=== PATIENT | female | born 1975 | race African-American/Black ===

== ENCOUNTER 2021-06-01 10:40 | Outpatient (REF) | payer OTHER, SELFPAY | END 2021-06-01 10:41 | disposition home or self-care (01) | LOC: HO.LAB 10:40 | PROVIDERS: Visit Provider Internal Medicine | DX: Z20.822 Contact with and (suspected) exposure to COVID-19 (principal) | CPT/HCPCS: C9803; U0003; U0005 ==

== ENCOUNTER 2021-10-12 08:23 | Outpatient (REF) | payer OTHER, SELFPAY ==
[2021-10-12 08:59] LABS: COVID-19 Test Positive (Negative); IDNOW Serial# 16C4AD1C
== END 2021-10-12 08:24 | disposition home or self-care (01) ==
LOC: HO.LAB 08:23
PROVIDERS: Visit Provider Internal Medicine
DX: Z20.822 Contact with and (suspected) exposure to COVID-19 (principal)
CPT/HCPCS: 36415; 87635; C9803

== ENCOUNTER 2021-10-19 09:47 | Outpatient (REF) | payer OTHER, SELFPAY ==
[2021-10-19 11:40] LABS: COVID-19 Test Positive (Negative)
== END 2021-10-19 09:48 | disposition home or self-care (01) ==
LOC: HO.LAB 09:47
PROVIDERS: Visit Provider Internal Medicine
DX: Z20.822 Contact with and (suspected) exposure to COVID-19 (principal)
CPT/HCPCS: 36415; 87635; C9803

== ENCOUNTER 2021-11-04 08:12 | Outpatient (REF) | payer OTHER, SELFPAY ==
[2021-11-04 08:44] LABS: COVID-19 Test Negative (Negative)
== END 2021-11-04 08:13 | disposition home or self-care (01) ==
LOC: HO.LAB 08:12
PROVIDERS: Visit Provider Internal Medicine
DX: Z20.822 Contact with and (suspected) exposure to COVID-19 (principal)
CPT/HCPCS: 87635; C9803

== ENCOUNTER 2021-11-17 15:30 | Outpatient (REF) | payer OTHER, SELFPAY ==
--- NOTE | ~2021-11-17 | US_ITS ---
EXAMINATION: US VENOUS ULTRASOUND WITH DOPPLER LOWER EXTREMITY, LEFT CLINICAL INFORMATION: Left leg pain COMPARISON: None TECHNIQUE: Ultrasound of the deep veins is performed from the hip to the calf with compression sonography and color and pulse Doppler assessment. Spectral analysis with color-flow imaging is performed. FINDINGS: There is normal venous compression and respiratory variation and augmented flow. The visualized common femoral vein, superficial femoral vein, profunda femoral vein, popliteal vein, and the trifurcation region shows no evidence of deep venous thrombosis. There is slow flow seen in the left popliteal vein. There are small left inguinal lymph nodes. There is no significant popliteal fossa cyst. US/US venous duplex LE LT IMPRESSION: No DVT demonstrated in the left lower extremity.
--- NOTE | ~2021-11-17 | XR_ITS ---
EXAMINATION: XR KNEE, LEFT CLINICAL INFORMATION: Pain. COMPARISON: 06/02/2017 TECHNIQUE: Four views of the left knee. FINDINGS: Once again, there is mild incongruity involving the articular patella at the articulation with the femur and this would be consistent with old trauma/osteochondral injury. Appearance is similar to previous. There is some mild medial joint space loss similar to previous. There is sclerotic change involving the medial tibial metaphysis and this is also similar to previous. This could represent a growth resumption line. An element of stress injury cannot be excluded. The patella appears fairly well seated on the sunrise image. XR/XR knee LT 4V IMPRESSION: Exam is felt to be similar to previous. Some areas are described above which would indicate old bony injury. Of note, sclerosis in the proximal tibia and medial compartment which appears similar to previous. An element of stress injury cannot be excluded. If further evaluation is warranted, consider MRI for full evaluation.
== END 2021-11-17 15:31 | disposition home or self-care (01) ==
LOC: HO.US 15:30
PROVIDERS: PCP Internal Medicine; Visit Provider Internal Medicine
DX: M79.605 Pain in left leg (principal)
CPT/HCPCS: 73564; 93971

== ENCOUNTER 2022-05-06 13:32 | Outpatient (REF) | payer OTHER, SELFPAY ==
--- NOTE | ~2022-05-06 | XR_ITS ---
EXAMINATION: XR FOOT, RIGHT XR FOOT, LEFT CLINICAL INFORMATION: Bilateral pain, feet COMPARISON: Radiographs right foot 11/16/2019. TECHNIQUE: Each foot is imaged in 3 views. There are total of 6 views. FINDINGS: Right: No fracture, dislocation, destructive process. Normal bony mineralization. No focal joint narrowing or erosive change. Retrocalcaneal recess preserved. There are moderate posterior and plantar calcaneal spurs. Tiny loose body suspected anterior right ankle capsular recess on prior study 2020 not visualized on current exam. There is a tiny distal anterior tibial spur again seen. No visible ankle capsular effusion. Left: Normal bony mineralization. No fracture, dislocation, or arthropathy. No joint narrowing or erosive change. Retrocalcaneal recess preserved. There is bulky plantar calcaneal spur. XR/XR foot LT 2V IMPRESSION: -No fracture, dislocation, destructive process, or arthropathy. -Left: bulky plantar calcaneal spur. -Right: moderate posterior and plantar calcaneal spurs.
--- NOTE | ~2022-05-06 | XR_ITS ---
EXAMINATION: XR FOOT, RIGHT XR FOOT, LEFT CLINICAL INFORMATION: Bilateral pain, feet COMPARISON: Radiographs right foot 11/16/2019. TECHNIQUE: Each foot is imaged in 3 views. There are total of 6 views. FINDINGS: Right: No fracture, dislocation, destructive process. Normal bony mineralization. No focal joint narrowing or erosive change. Retrocalcaneal recess preserved. There are moderate posterior and plantar calcaneal spurs. Tiny loose body suspected anterior right ankle capsular recess on prior study 2020 not visualized on current exam. There is a tiny distal anterior tibial spur again seen. No visible ankle capsular effusion. Left: Normal bony mineralization. No fracture, dislocation, or arthropathy. No joint narrowing or erosive change. Retrocalcaneal recess preserved. There is bulky plantar calcaneal spur. XR/XR foot RT 2V IMPRESSION: -No fracture, dislocation, destructive process, or arthropathy. -Left: bulky plantar calcaneal spur. -Right: moderate posterior and plantar calcaneal spurs.
[2022-05-06 13:46] LABS: MANUAL DIFF FLAG NO
--- NOTE | 2022-05-06 13:46 | ECG_ITS ---
Test Reason : r07.9 cp Blood Pressure : / mmHG Vent. Rate : 065 BPM Atrial Rate : 065 BPM P-R Int : 188 ms QRS Dur : 082 ms QT Int : 404 ms P-R-T Axes : 074 067 048 degrees QTc Int : 420 ms Normal sinus rhythm with sinus arrhythmia Normal ECG When compared with ECG of 08-AUG-2013 11:04, No significant change was found Referred By: Flower Castro Electronically Signed By:ALEJANDRA GARCIA MD
[2022-05-06 14:41] LABS: Basophils Percent Auto 0.4 % (0-2); Eosinophils Absolute Auto 0.1 X10*3/uL (0.0-0.4); Eosinophils Percent Auto 1.8 % (0-4); Hematocrit 37.2 % (37.0-47.0); Hemoglobin 12.4 g/dl (12.0-16.0); Imm Gran Abs Auto 0.03 X10*3/uL (0.00-0.03); Imm Gran Pct Auto 0.4 % (0.0-0.4); Lymphocytes Absolute Auto 2.5 X10*3/uL (1.2-4.9); Lymphocytes Percent Auto 35.1 % (20-40); Mean Corpuscular HGB Conc 33.3 g/dl (31.0-35.0); Mean Corpuscular Hemoglobin 27.4 pg (27.0-33.0); Mean Corpuscular Volume 82.1 fL (80.0-98.0); Mean Platelet Volume 9.9 fL (9.4-12.3); Monocytes Percent Auto 13.6 % (2-11); Neutrophils Absolute Auto 3.5 x10*3/uL (2.0-8.3); Neutrophils Percent Auto 48.7 % (45-73); Platelet Count 342 X10*3/uL (160-400); Red Blood Count 4.53 X10*6/uL (4.20-5.50); Red Cell Distribution Width 14.2 % (11.0-16.0); White Blood Count 7.2 X10*3/uL (4.8-10.8)
[2022-05-06 15:14] LABS: Alanine Aminotransferase 25 U/L (0-31); Albumin Level 4.5 g/dL (3.5-5.0); Alkaline Phosphatase 81 U/L (39-117); Anion Gap 12 (12-20); Aspartate Amino Transferase 21 U/L (5-31); Bilirubin Total 0.9 mg/dL (0.0-1.0); Blood Urea Nitrogen 9 mg/dL (9-16); Calcium 9.1 mg/dL (8.4-10.2); Carbon Dioxide 23 mmol/L (22-29); Chloride 107 mmol/L (96-108); Cholesterol 183 mg/dL; Estimated Glomerular Filt Rate > 60; Glucose Fasting 85 mg/dL (60-99); HDL Cholesterol 44 mg/dL; LDL Cholesterol Calculated 121 mg/dl; Potassium 4.1 mmol/L (3.3-5.1); Sodium 138 mmol/L (135-145); Total Protein 7.9 g/dL (6.5-8.0); Triglycerides 92 mg/dL
[2022-05-06 15:34] LABS: Thyroid Stimulating Hormone 1.44 uIU/mL (0.32-4.0)
== END 2022-05-06 13:33 | disposition home or self-care (01) ==
LOC: HO.XRAY 13:32
PROVIDERS: PCP Internal Medicine; Visit Provider Internal Medicine
DX: Z00.00 Encounter for general adult medical examination without abnormal findings (principal); R07.9 Chest pain, unspecified; M79.671 Pain in right foot; M79.672 Pain in left foot
CPT/HCPCS: 36415; 73620; 80053; 80061; 84443; 85025; 93005

== ENCOUNTER 2022-05-24 12:45 | Outpatient (REF) | payer OTHER, SELFPAY ==
--- NOTE | ~2022-05-24 | MM_ITS ---
EXAMINATION: MM SCREENING DIGITAL BREAST TOMOSYNTHESIS, BILATERAL CLINICAL INFORMATION: Screening. Asymptomatic. Family history breast cancer, mother. The lifetime risk of breast cancer based on the Tyrer-Cuzick Model is 22%. COMPARISON: Mammography: 07/07/2016 (baseline) TECHNIQUE: Digital breast tomosynthesis is performed in both the craniocaudal and mediolateral oblique views along with computer-aided detection (CAD). Synthesized 2D images are generated from the tomosynthesis. FINDINGS: The breasts are heterogeneously dense, which may obscure small masses (ACR BI-RADS breast composition Category c). Breast tissue composition borders on average fibroglandular. There is no interval mass or architectural abnormality. Focal punctate calcifications are suggested posterior 11:30 right breast possibly with superimposed digital processing artifact. Patient will be recalled to fully characterize. The skin contours are smooth. MM/MM tomosynthesis screening BI IMPRESSION: Right: -Punctate calcifications suggested posterior 11:30 o'clock position. Left: -No mammographic evidence of malignancy. ASSESSMENT: BI-RADS 0: Incomplete - Need Additional Imaging Evaluation RECOMMENDATION: 1. Additional views of the right breast (magnification CC, magnification ML). 2. Radiology department staff will contact the patient for additional imaging. This patient's information was entered into a reminder system with a target due date for their next mammogram.
== END 2022-05-24 12:46 | disposition home or self-care (01) ==
LOC: HO.MAMMO 12:45
PROVIDERS: PCP Internal Medicine; Visit Provider Internal Medicine
DX: Z12.31 Encounter for screening mammogram for malignant neoplasm of breast (principal)
CPT/HCPCS: 77063; 77067

== ENCOUNTER 2022-06-14 14:25 | Outpatient (REF) | payer OTHER, SELFPAY ==
--- NOTE | ~2022-06-14 | MM_ITS ---
EXAMINATION: MM DIAGNOSTIC DIGITAL MAMMOGRAPHY, RIGHT CLINICAL INFORMATION: Calcifications COMPARISON: Mammography: May 24, 2022 and July 07, 2016 TECHNIQUE: Digital mammography is performed in the following views: Spot magnification views of the right breast in craniocaudal and 90 degree mediolateral views. FINDINGS: The breasts are heterogeneously dense, which may obscure small masses (ACR BI-RADS breast composition Category c). There is a grouping of indeterminate calcifications noted within the superior aspect of the right breast for which stereotactic core biopsy is recommended. Results are discussed with the patient at time of visit. Referring provider's office was called with the above recommendation by the breast center vice president of finance. MM/MM added views RT IMPRESSION: Left breast calcifications superior aspect for which stereotactic core biopsy is recommended. ASSESSMENT: BI-RADS 4: Suspicious RECOMMENDATION: Stereotactic core biopsy right breast
== END 2022-06-14 14:26 | disposition home or self-care (01) ==
LOC: HO.MAMMO 14:25
PROVIDERS: PCP Internal Medicine; Visit Provider Internal Medicine
DX: R92.1 Mammographic calcification found on diagnostic imaging of breast (principal)
CPT/HCPCS: 77065

== ENCOUNTER 2022-06-21 10:06 | Outpatient (REF) | payer OTHER, SELFPAY ==
--- NOTE | ~2022-06-21 | MM_ITS ---
EXAMINATION: STEREOTACTIC TOMOSYNTHESIS-GUIDED VACUUM-ASSISTED BREAST BIOPSY, RIGHT SPECIMEN RADIOGRAPH, RIGHT POST PROCEDURE DIGITAL MAMMOGRAM, RIGHT CLINICAL INFORMATION: Punctate calcifications posterior 11:30 o'clock right breast for stereotactic sampling. Family history ovarian cancer, mother. COMPARISON: Mammography 06/14/2022, 05/24/2022, 07/07/2016. TECHNIQUE/PROCEDURE: Informed consent was obtained from the patient after discussion of the benefits, risks, and alternatives to biopsy today. Patient appeared to understand. Gave opportunity for questions. Patient signed consent form. BIOPSY TABLE: [employer]etr[employer] Prone Biopsy System. LESION: Fine calcifications posterior 11:30 o'clock right breast. LOCAL ANESTHESIA: 10 mL carbonated 1% lidocaine; 10 mL 1% lidocaine with epinephrine. DERMATOTOMY: Single skin leah dermatotomy performed. NEEDLE: PTS [employer] 9-gauge vacuum assisted core biopsy device. APPROACH: Craniocaudal. TARGETING: Combination of digital breast tomosynthesis and stereotactic digital mammography used for targeting. CORES: 7. CLIP: [employer] T-shaped marker. SPECIMEN RADIOGRAPH: Specimen radiograph is taken in separate room using digital mammography. The index calcifications are in the excised cores. There are at least 12 calcifications in the cores. POST PROCEDURE UNILATERAL DIGITAL MAMMOGRAM: The post biopsy mammogram is performed in separate room using separate digital mammography equipment from the biopsy procedure. CC and ML views are obtained. There are scattered areas of fibroglandular density (breast composition category: b). The clip marker is in position. The calcifications are markedly decreased at the biopsy site. No gross hematoma. The patient tolerated the procedure well. No immediate complications. Home instructions reviewed with the patient. Final pathology results are pending. MM/MM stereotactic biopsy RT IMPRESSION: 1. Digital tomosynthesis-guided core biopsy right breast with clip placement. 2. Specimen radiograph taken and post procedure mammogram. There is satisfactory positioning of the biopsy clip. 3. Final pathology results pending. An addendum report will be issued.
[2022-06-21] MEDS: Lidocaine HCl 1 % 20 ML VIAL 9 ML SUBCUT (16:15)
[2022-06-21] MEDS: Sodium Bicarbonate 8.4% 50 MEQ/50 ML VIAL SUBCUT (16:16)
== END 2022-06-21 10:07 | disposition home or self-care (01) ==
LOC: HO.MAMMO 10:06
PROVIDERS: PCP Internal Medicine; Visit Provider Surgery
DX: R92.1 Mammographic calcification found on diagnostic imaging of breast (principal)
CPT/HCPCS: 19081; 88305; A4648

== ENCOUNTER 2022-09-20 11:30 | Outpatient (REF) | payer OTHER, SELFPAY ==
[2022-09-20 12:30] LABS: COVID-19 Test Positive (Negative); IDNOW Serial# 16C4AD1C
== END 2022-09-20 11:31 | disposition home or self-care (01) ==
LOC: HO.LAB 11:30
PROVIDERS: Visit Provider Internal Medicine
DX: Z20.822 Contact with and (suspected) exposure to COVID-19 (principal)
CPT/HCPCS: 87635; C9803

== ENCOUNTER 2023-05-11 12:03 | Outpatient (AMB) | payer OTHER, SELFPAY ==
[2023-05-11 12:12] VITALS: BP 124/80; BMI 29.8
--- NOTE | 2023-05-11 12:12 | A.OFFPC_ITS ---
Vital Signs 05/11/23 12:12 Height 5 ft 7 in Weight 190 lb BMI 29.8 BP 124/80 Blood Pressure Location Lt brachial Position Sitting Intake Visit Reasons: Physical Exam Intake Note: Patient here for a physical exam Assistant [employer] Required: No Accompanied by: Self / Same As Patient Allergies No Known Allergies Allergy (Verified 05/11/23 12:22) Medication List - Last Reconciled 05/11/23 by Flower Castro MD triamcinolone acetonide 0.025% 1 appl topical BID Tobacco use date assessed: 05/11/23 Dental Screening Dental Screen Date: 05/11/23 Did you have a dental visit in the last 12 months?: Yes Did you have a dental problem in the last 6 months where you did not have access to dental care?: No Was dental information given to patient?: Patient has dentist HPI HPI Comments History of Present Illness Details This is a 48-year-old female that comes for her physical exam. Mammogram scheduled for next month. Last Pap smear was 2019 and was referred to OBGYN. Has never had a colonoscopy and will have Cologuard. No chest pain or shortness of breath. Has left foot skin lesion with silvery scaly plaque most likely due to psoriasis. Has right foot lesion that is painful. [facility] Medical History (Updated 05/11/23 @ 12:39 by Flower Castro MD) Blood pressure elevated without history of HTN Breast calcification, right Bunion of right foot Chest pain Left knee pain Left leg pain Surgical History No pertinent past surgical history Family History Father No problems noted. Mother CKD (chronic kidney disease) Hypertension Glaucoma Diabetes Uterine cancer Social History Housing: Apartment Alcohol intake: never Patient Tobacco Use Status: Former Tobacco user Tobacco use type: Cigarette Cigarettes Per Day: 4 e-Cigarette/Vaping Use: Never Used Second Hand Smoke Exposure: No service: No Current occupational status: employed Current occupational exposures/hazards: No Cognitive needs: No Hearing needs: No Vision needs: Yes Questionnaire PHQ-9 Over the last 2 weeks, how often have you been bothered by any of the following problems? 1. Little interest or pleasure in doing things: not at all 2. Feeling down, depressed, or hopeless: not at all 3. Trouble falling or staying asleep, or sleeping too much: not at all 4. Feeling tired or having little energy: not at all 5. Poor appetite or overeating: not at all 6. Feeling bad about yourself - or that you are a failure or have let yourself or your family down: not at all 7. Trouble concentrating on things, such as reading the newspaper or watching television: not at all 8. Moving or speaking so slowly that other people could have noticed. Or the opposite - being so fidgety or restless that you have been moving around a lot more than usual: not at all 9. Thoughts that you would be better off or of hurting yourself in some way: not at all Total score: 0 Depression Screening Interpretation: Negative 91973 - PHQ-9 Billing: Yes Source: Developed by Drs. Zach Weller, Shelli Price, Cristopher Wheeler and colleagues, with an educational nicole from [employer]. Thrive Questionnaire Date Thrive assessed: 05/11/23 I am a: Patient What is your living situation today?: I have a steady place to live Within the past 12 months, did the food you bought not last and you didn't have the money to get more?: Never true Within the past 12 months, did you worry whether your food would run out before you got money to buy more?: Never true Do you have trouble paying for medicines?: No Do you have trouble getting transportation to medical appointments?: No Do you have trouble paying your heating and electricity bill?: No Do you have trouble taking care of your child, family member or friend?: No Do you have trouble with day-to-day activities such as bathing, preparing meals, shopping, managing finances, etc.?: No Are you currently unemployed and looking for a job?: No Are you interested in more education?: No Please select the resources that you would like help with: None Currently or been in a relationship where the following occur: no concerns reported AUDIT C Alcohol Use Questionnaire (AUDIT-C) 1. How often do you have a drink containing alcohol?: Never Total Score: 0 SHIMON-7 AMB Questionnaire SHIMON-7 Date SHIMON - 7 assessed: 05/11/23 Feeling nervous, anxious, or on edge: 0 = Not at all Not being able to stop or control worryin = Not at all Worrying too much about different things: 0 = Not at all Trouble relaxin = Not at all Being so restless that it is hard to sit still: 0 = Not at all Becoming easily annoyed or irritable: 0 = Not at all Feeling afraid as if something awful might happen: 0 = Not at all Total SHIMON-7 score (0-4 normal; 5-9 mild; 10-14 moderate; 15-21 severe): 0 Source: Developed by Drs. Zach Weller, Shelli Price, Cristopher Wheeler and colleagues, with an educational nicole from [employer]. SHIMON-7 Assessment Billing SHIMON-7 Assessment Tool: SHIMON-7 Assessment 38646 Review of Systems Const All systems reviewed & are unremarkable except as noted in HPI and below Eyes Reports no additional complaints, Denies change in vision and Denies other visual disturbances Card Denies chest pain at rest, Denies chest pain with activity, Denies edema, Denies irregular heart rhythm, Denies claudication, Denies dyspnea, Denies dyspnea on exertion, Denies orthopnea, Denies paroxysmal nocturnal dyspnea and Denies slow heart rate Resp Denies cough, Denies dyspnea and Denies dyspnea on exertion GI Denies abdominal pain, Denies change in bowel habits, Denies excessive flatus, Denies nausea and Denies vomiting Denies urinary incontinence, Denies urinary hesitancy and Denies urinary urgency Musc Denies abnormal gait, Denies atrophy, Denies deformity and Denies limited range of motion Skin/Breast Denies bleeding lesions, Denies changing lesions, Reports dry skin, Reports lesions and Denies rash Neuro Denies abnormal gait and Denies lack of coordination Physical exam (Primary Care) Vital Signs: Last Vital Signs BP 124/80 05/11/23 12:12 BMI result Body Mass Index 29.8 Tobacco/Smoking Status: Tobacco use Status Tobacco use date assessed 05/11/23 05/11/23 12:19 Patient Tobacco Use Status Former Tobacco user 05/11/23 12:19 Tobacco use type Cigarette 05/11/23 12:19 e-Cigarette/Vaping Use Never Used 05/11/23 12:19 PHQ-9: PHQ-9 Score PHQ-9: Total score 0 05/11/23 12:19 Depression Screening Interpretation: Negative Thrive Assessment: Date of Thrive Assessment Date Thrive assessed 05/11/23 05/11/23 12:19 Currently or been in a relationship where the following occur: no concerns reported Const Orientation/consciousness: patient oriented x3 HENMT Head: Yes normal to inspection, Yes normocephalic and Yes atraumatic Ears: external ears normal Eyes General: appearance normal, both eyes and all related structures Eyelids: Yes eyelids normal Conjunctivae: conjunctivae normal Neck Neck: Yes normal visual inspection and Yes supple Resp Effort & Inspection: normal respiratory effort Auscultation: clear to auscultation bilaterally Cardio Jugular venous distension: no JVD Rate: regular rate Rhythm: regular rhythm Heart sounds: S1 normal heart sound present and S2 normal heart sound present GI Inspection: Yes normal to inspection Palpation (GI): Soft to palpation and nontender Auscultation: normal bowel sounds Skin Other: silvery scaly plaque in left foot sole Neuro General: patient oriented x3 and no focal motor deficits Extrem General: Yes full ROM Psych Appearance: grossly normal Assessment and Plan Assessment & Plan (1) Physical exam: Code(s): Z00.00 - Encounter for general adult medical examination without abnormal findings Plan: Repeat in a year Orders: Orders Comprehensive Hallie. Panel Fast Today Z00.00 - Encounter for general adult medical examination without abnormal findings Lipid Panel Today Z00.00 - Encounter for general adult medical examination without abnormal findings Referrals Cologuard Test Z12.11 - Encounter for screening for malignant neoplasm of colon, Z12.12 - Encounter for screening for malignant neoplasm of rectum Dermatology Referral L30.9 - Dermatitis, unspecified Podiatry Referral M21.611 - Bunion of right foot [employer] Referral Z12.4 - Encounter for screening for malignant neoplasm of cervix Coding Level of Care Code Est Pt Prev Care 40-64y(48141) Diagnoses Physical exam Z00.00 Additional Codes SHIMON-7 Assessment Billing - SHIMON-7 Assessment Tool: SHIMON-7 Assessment 92801 ([id number]) Time Spent (min) 33
== END 2023-05-11 12:38 | disposition home or self-care (01) ==
PROVIDERS: PCP Internal Medicine; Visit Provider Internal Medicine
DX: Z00.00 Encounter for general adult medical examination without abnormal findings (principal)
CPT/HCPCS: 99396

== ENCOUNTER 2023-05-30 12:54 | Outpatient (REF) | payer OTHER, SELFPAY ==
--- NOTE | ~2023-05-30 | MM_ITS ---
EXAMINATION: MM SCREENING DIGITAL BREAST TOMOSYNTHESIS, BILATERAL CLINICAL INFORMATION: Screening. Asymptomatic. The lifetime risk of breast cancer based on the Tyrer-Cuzick Model is 18%. COMPARISON: Mammography: A 2922, 05/24/2022, and dating back to 2016. TECHNIQUE: Digital breast tomosynthesis is performed in both the craniocaudal and mediolateral oblique views along with computer-aided detection (CAD). Synthesized 2D images are generated from the tomosynthesis. FINDINGS: The breasts are heterogeneously dense, which may obscure small masses (ACR BI-RADS breast composition Category c). Post benign biopsy clip noted in the slightly upper slightly outer far posterior right breast from recent benign stereotactic breast biopsy. No remaining calcifications evident surrounding the clip. There is a 1 view asymmetry in the far lateral left breast seen on the CC projection only, posterior one third, with no definite correlate on the left MLO projection. Diagnostic views recommended with scheduled ultrasound at the discretion of the reading radiologist. There are no suspicious abnormalities in the right breast. MM/MM tomosynthesis screening BI IMPRESSION: 1 view asymmetry far lateral left breast seen only on CC projection, for which diagnostic views are recommended to include left CC 3-D spot compression view, and a 3-D left mediolateral view. No suspicious abnormality in the right breast. ASSESSMENT: BI-RADS BI-RADS 0 - Incomplete: Needs additional Imaging. RECOMMENDATION: 1. Additional views of the left breast 2. Targeted ultrasound if warranted after review of the additional views. 3. Radiology department staff will contact the patient for additional imaging. Additional Imaging required
== END 2023-05-30 12:55 | disposition home or self-care (01) ==
LOC: HO.MAMMO 12:54
PROVIDERS: PCP Internal Medicine; Visit Provider Internal Medicine
DX: Z12.31 Encounter for screening mammogram for malignant neoplasm of breast (principal)
CPT/HCPCS: 77063; 77067

== ENCOUNTER → 2023-05-30 13:00 | Outpatient (BNV) | payer OTHER, SELFPAY | PROVIDERS: PCP Internal Medicine; Visit Provider Radiology Diagnostic Radiology | DX: Z12.31 Encounter for screening mammogram for malignant neoplasm of breast (principal) | CPT/HCPCS: 77063; 77067 ==

== ENCOUNTER → 2023-06-24 08:30 | Outpatient (BNV) | payer OTHER, SELFPAY | PROVIDERS: PCP Internal Medicine; Visit Provider Radiology Diagnostic Radiology | DX: N63.25 Unspecified lump in the left breast, overlapping quadrants (principal) | CPT/HCPCS: 76642; 77061; 77065 ==

== ENCOUNTER 2023-06-24 08:37 | Outpatient (REF) | payer OTHER, SELFPAY ==
--- NOTE | ~2023-06-24 | US_ITS ---
EXAMINATION: MM DIAGNOSTIC DIGITAL BREAST TOMOSYNTHESIS, LEFT US BREAST LIMITED, LEFT MAMMOGRAPHY: CLINICAL INFORMATION: Follow-up for one view asymmetry seen on screening in the far lateral left breast on the CC projection only, posterior one third, with no definite MLO correlate. Finding localizes to the lower breast on tomographic views. COMPARISON: Mammography: 05/30/2023, 05/24/2022, and 07/07/2016. TECHNIQUE: Digital left breast tomosynthesis is performed utilizing full-field 3-D digital left mediolateral view, full field 3-D left exaggerated CC view, and 3-D spot compression left CC view. Along with computer-aided detection (CAD). Synthesized 2D images are generated from the tomosynthesis. FINDINGS: The breasts are heterogeneously dense, which may obscure small masses (ACR BI-RADS breast composition Category c). The previously identified 1 view asymmetry does not persist on diagnostic views and is most consistent with superimposition artifact of normal heterogeneously dense glandular tissue and Ian's ligaments. Mammography demonstrates no persistent suspicious abnormality. ULTRASOUND: CLINICAL INFORMATION: Follow-up for one view asymmetry seen on screening in the far lateral left breast on the CC projection only, posterior one third, with no definite MLO correlate. COMPARISON: None relevant. TECHNIQUE: Targeted sonographic evaluation of the lateral inferior quadrant left breast was performed using a high frequency linear transducer. Selected archived documentation. FINDINGS: LEFT BREAST: There is heterogeneously dense fibroglandular tissue present. No suspicious mass is seen. There is no pathologic acoustic shadowing. There is no cystic abnormality. US/US breast LT limited mamm only IMPRESSION: There are no persistent findings suspicious for malignancy. Abnormality seen previously consistent with superimposition artifact of normal overlapping breast tissue. Recommend the patient resume routine annual screening mammography. OVERALL ASSESSMENT: Mammography: BI-RADS 1 - Negative Ultrasound: BI-RADS 1 - Negative RECOMMENDATION: 1 year F/U Results were provided to the patient at time of visit by the technologist. This patient's information was entered into a reminder system with a target due date for their next mammogram.
== END 2023-06-24 08:38 | disposition home or self-care (01) ==
LOC: HO.MAMMO 08:37
PROVIDERS: PCP Internal Medicine; Visit Provider Internal Medicine
DX: N64.89 Other specified disorders of breast (principal)
CPT/HCPCS: 76642; 77061; 77065

== ENCOUNTER 2023-07-04 11:10 | Outpatient (REF) | payer OTHER, SELFPAY ==
[2023-07-04 14:38] LABS: Alanine Aminotransferase 19 U/L (0-31); Albumin Level 3.9 g/dL (3.5-5.0); Alkaline Phosphatase 68 U/L (39-117); Anion Gap 11 (12-20); Aspartate Amino Transferase 16 U/L (5-31); Bilirubin Total 0.3 mg/dL (0.0-1.0); Blood Urea Nitrogen 8 mg/dL (9-16); Calcium 9.8 mg/dL (8.4-10.2); Carbon Dioxide 25 mmol/L (22-29); Chloride 109 mmol/L (96-108); Estimated Glomerular Filt Rate > 60; Glucose Random 73 mg/dL (60-115); Potassium 4.1 mmol/L (3.3-5.1); Sodium 141 mmol/L (135-145); Total Protein 7.4 g/dL (6.5-8.0); Triglycerides 162 mg/dL (<150)
== END 2023-07-04 11:11 | disposition home or self-care (01) ==
LOC: HO.LAB 11:10
PROVIDERS: PCP Internal Medicine; Visit Provider Physician Assistant Medical
DX: L40.0 Psoriasis vulgaris (principal); L30.9 Dermatitis, unspecified
CPT/HCPCS: 36415; 80053; 84478

== ENCOUNTER 2023-09-05 10:30 | Outpatient (REF) | payer OTHER, SELFPAY ==
[2023-09-05 11:22] LABS: Alanine Aminotransferase 23 U/L (0-31); Albumin Level 3.9 g/dL (3.5-5.0); Alkaline Phosphatase 71 U/L (39-117); Anion Gap 11 (12-20); Aspartate Amino Transferase 22 U/L (5-31); Bilirubin Total 0.3 mg/dL (0.0-1.0); Blood Urea Nitrogen 7 mg/dL (9-16); Calcium 9.4 mg/dL (8.4-10.2); Carbon Dioxide 29 mmol/L (22-29); Chloride 105 mmol/L (96-108); Estimated Glomerular Filt Rate > 60; Glucose Random 91 mg/dL (60-115); Potassium 4.1 mmol/L (3.3-5.1); Sodium 141 mmol/L (135-145); Total Protein 7.4 g/dL (6.5-8.0); Triglycerides 137 mg/dL (<150)
== END 2023-09-05 10:31 | disposition home or self-care (01) ==
LOC: HO.LAB 10:30
PROVIDERS: PCP Internal Medicine; Visit Provider Physician Assistant Medical
DX: L40.0 Psoriasis vulgaris (principal)
CPT/HCPCS: 36415; 80053; 84478

== ENCOUNTER 2024-12-17 20:29 | Emergency (ER) | payer OTHER, SELFPAY ==
--- NOTE | ~2024-12-17 | CT_ITS ---
CLINICAL HISTORY: left flank pain CT abdomen and pelvis without contrast Comparison: None Findings: Minor dependent atelectasis at the lung bases. 1 mm stone appears to be dependently within the left ureter at the level of the pelvic inlet, image 469:4. No hydronephrosis or perinephric fat stranding. No bowel obstruction, pneumoperitoneum, or pneumatosis. Moderate stool. Uterus and ovaries unremarkable. Normal appendix. The bones are intact. IMPRESSION: Suspect a 1 mm nonobstructing left distal ureteral stone at the level of the pelvic inlet. This document has been electronically signed by: Atilio Chavez MD on 12/18/2024 03:07:40
[2024-12-17 21:00] VITALS: BP 140/56; PULSE 93; RESP 16; TEMP 36.8; O2SAT 99; BMI 33.4
[2024-12-17 21:42] LABS: MANUAL DIFF FLAG NO
[2024-12-17 21:45] LABS: Basophils Percent Auto 0.6 % (0-2); Eosinophils Absolute Auto 0.1 X10*3/uL (0.0-0.4); Hematocrit 34.6 % (37.0-47.0); Hemoglobin 11.5 g/dl (12.0-16.0); Imm Gran Abs Auto 0.02 X10*3/uL (0.00-0.03); Imm Gran Pct Auto 0.3 % (0.0-0.4); Lymphocytes Percent Auto 29.4 % (20-40); Mean Corpuscular HGB Conc 33.2 g/dl (31.0-35.0); Mean Corpuscular Hemoglobin 26.5 pg (27.0-33.0); Mean Corpuscular Volume 79.7 fL (80.0-98.0); Mean Platelet Volume 9.4 fL (9.4-12.3); Monocytes Absolute Auto 1.3 X10*3/uL (0.1-1.2); Monocytes Percent Auto 19.1 % (2-11); Neutrophils Absolute Auto 3.4 x10*3/uL (2.0-8.3); Neutrophils Percent Auto 49.6 % (45-73); Platelet Count 335 X10*3/uL (160-400); Red Blood Count 4.34 X10*6/uL (4.20-5.50); Red Cell Distribution Width 14.6 % (11.0-16.0); White Blood Count 6.9 X10*3/uL (4.8-10.8)
[2024-12-17 22:03] LABS: Alanine Aminotransferase 27 U/L (0-31); Albumin Level 3.8 g/dL (3.5-5.0); Alkaline Phosphatase 90 U/L (39-117); Anion Gap 15 (12-20); Aspartate Amino Transferase 20 U/L (5-31); Bilirubin Total 0.2 mg/dL (0.0-1.0); Blood Urea Nitrogen 10 mg/dL (9-16); Calcium 9.4 mg/dL (8.4-10.2); Carbon Dioxide 25 mmol/L (22-29); Chloride 106 mmol/L (96-108); Creatinine Clr Calc Pharmacy 83.6; Estimated Glomerular Filt Rate > 60; Glucose Random 105 mg/dL (60-115); Potassium 4.1 mmol/L (3.3-5.1); Sodium 142 mmol/L (135-145); Total Protein 7.9 g/dL (6.5-8.0)
[2024-12-17 23:21] LABS: Appearance Urine Cloudy; Color Urine Yellow; Glucose Urine UA Negative (Negative); Leukocyte Esterase Urine Moderate (2+) (Negative); Nitrite Urine Negative (Negative); PH 6.5 (5.0-9.0); Specific Gravity - Urine 1.025 (1.005-1.025); UMIC TRIGGER UACC YES; Urine Blood Negative (Negative); Urine Ketones Trace mg/dL (Negative); Urine Protein Negative (Neg-Trace)
[2024-12-17 23:36] LABS: Bacteria Urine 3+ (None Seen); Hyaline Casts Urine 0-2 /LPF (0-2); RBC Urine 0-2 /HPF (0-2); UACC Culture Trigger YES
[2024-12-18 00:34] VITALS: BP 147/59; PULSE 86; RESP 20; TEMP 37.3; O2SAT 99
--- NOTE | 2024-12-18 00:37 | PC.NURSE ---
pt is alert and oriented, skin appropriate for ethnicity, respirations even and unlabored, pt reports left lower abd pain that radiates to the flank area/nausea, no urinary symptoms, reports having about 6 episodes of diarrhea yesterday but was constipated about 3 days ago, bowel sounds in all 4 quadrants, abd soft and slightly tender in the mid left sided, vs stable
--- NOTE | 2024-12-18 01:43 | ED.ABDPAIN ---
HPI - Abdominal Pain General Chief Complaint: Abdominal Pain Stated Complaint: lower left abd pain Time Seen by Provider: 12/18/24 01:31 Source: patient Limitations: no limitations History of Present Illness ED Provider: Radha Nash PA-C HPI narrative: 49-year-old female who is otherwise healthy presents with left flank pain x1 day. Pain over mid to low left flank, describes as a sharp stabbing sensation, the fluctuates in intensity and is nonradiating. Associated nausea vomiting when the pain becomes severe. Denies diarrhea, fever, dysuria, hematuria or history of kidney stones. Related Data Previous Rx's ?Medication ?Instructions ?Recorded triamcinolone acetonide 0.025 % 1 appl topical BID #15 grams 12/08/22 topical cream prednisone 10 mg tablet 10 mg PO DIRECTED 6 days #12 05/12/23 tabs ketorolac 10 mg tablet 10 mg PO QID PRN pain #20 tabs 12/18/24 ondansetron HCl 4 mg tablet 4 mg PO Q8H PRN nausea and 12/18/24 vomiting #10 tabs tamsulosin 0.4 mg capsule (Flomax) 0.4 mg PO DAILY #3 caps 12/18/24 Allergies Allergy/AdvReac Type Severity Reaction Status Date / Time No Known Allergies Allergy Verified 12/17/24 21:02 Review of Systems Review of Systems Yes all other systems are reviewed and are negative Constitutional: Denies fatigue and Denies fever(s) Cardiovascular: Denies chest pain and Denies dyspnea Respiratory: Denies cough and Denies dyspnea Gastrointestinal: Reports abdominal pain, Denies diarrhea, Reports nausea and Reports vomiting Genitourinary: Denies hematuria, Denies dysuria and Denies flank pain Musculoskeletal: Denies back pain Endocrine: Denies fatigue PMFSH Past Medical History Attestation statement: The following information was validated with the patient. Medical History Blood pressure elevated without history of HTN Breast calcification, right Bunion of right foot Chest pain Left knee pain Left leg pain Surgical History No pertinent past surgical history Family History Family History Father No problems noted. Mother CKD (chronic kidney disease) Hypertension Glaucoma Diabetes Uterine cancer Social History Social History Housing: Apartment Alcohol intake: never Patient Tobacco Use Status: Former Tobacco user Tobacco use type: Cigarette Cigarettes Per Day: 4 Smoked in Last 30 Days: Yes e-Cigarette/Vaping Use: Never Used Second Hand Smoke Exposure: No Use of substances other than those prescribed or required for medical reasons: Yes Substance Use Type: Marijuana Advance Directives: No Advance Directives Information Provided: Yes Do you have a plan to hurt others: No Plan service: No Current occupational status: employed Current occupational exposures/hazards: No Cognitive needs: No Hearing needs: No Vision needs: Yes Physical Exam ED Vital Signs: Vital Signs - 24 hr 12/17/24 21:00 12/18/24 00:34 Temperature 98.3 F 99.1 F Pulse Rate 93 86 Respiratory Rate 16 20 Blood Pressure 140/56 H 147/59 H Pulse Oximetry 99 99 Oxygen Delivery Method Room Air Room Air BMI result Body Mass Index 33.4 Const Other: Alert Orientation/consciousness: patient oriented x3 Resp Effort & Inspection: normal respiratory effort Cardio Other: Normal peripheral perfusion Back/Spine/Pelvis Other: Left CVA tenderness Skin Other: Warm dry no rash Neuro General: patient oriented x3, gait normal, no focal motor deficits and CN's II-XI intact bilaterally Psych Other: Cooperative Medical Decision Making Medical Decision Making MDM Narrative: 49-year-old female who is otherwise healthy presents with left flank pain x1 day. Pain over mid to low left flank, describes as a sharp stabbing sensation, the fluctuates in intensity and is nonradiating. Associated nausea vomiting when the pain becomes severe. Denies diarrhea, fever, dysuria, hematuria or history of kidney stones. No chronic issues History: Per patient I have considered the following differential diagnoses: Renal colic, pyelonephritis, UTI, diverticulitis Plan: Given distribution of discomfort in nature of symptoms, I am considering renal colic. Screening labs including a urinalysis were obtained from triage, overall unremarkable, there was only trace hematuria noted. Obtaining a CT scan, giving Toradol Zofran and IV fluid. Considering pyelonephritis, she does have CVA tenderness, although the urine is not infected, she is afebrile, the pain could be referred. Given left-sided symptoms I am considering diverticulitis, however the pain is within the flank not in the left lower abdomen, she has no diarrhea. I have independently reviewed the following tests: Labs: No leukocytosis, not anemic, no electrolyte abnormality, urine not infected, passing some white cells some red cells, some bacteria, no nitrites CT abdomen and pelvis:Findings: Minor dependent atelectasis at the lung bases. 1 mm stone appears to be dependently within the left ureter at the level of the pelvic inlet, image 469:4. No hydronephrosis or perinephric fat stranding. No bowel obstruction, pneumoperitoneum, or pneumatosis. Moderate stool. Uterus and ovaries unremarkable. Normal appendix. The bones are intact. IMPRESSION: Suspect a 1 mm nonobstructing left distal ureteral stone at the level of the pelvic inlet. This document has been electronically signed by: Atilio Chavez MD on 12/18/2024 03:07:40 Lab Data 12/17/24 21:39 12/17/24 21:39 Labs: Lab Results 12/17/24 12/17/24 Range/Units 21:39 23:15 WBC 6.9 (4.8-10.8) X10*3/uL RBC 4.34 (4.20-5.50) X10*6/uL Hgb 11.5 L (12.0-16.0) g/dl Hct 34.6 L (37.0-47.0) % MCV 79.7 L (80.0-98.0) fL MCH 26.5 L (27.0-33.0) pg MCHC 33.2 (31.0-35.0) g/dl RDW 14.6 (11.0-16.0) % Plt Count 335 (160-400) X10*3/uL MPV 9.4 (9.4-12.3) fL Immature Gran % (Auto) 0.3 (0.0-0.4) % Neut % (Auto) 49.6 (45-73) % Lymph % (Auto) 29.4 (20-40) % Whiteside % (Auto) 19.1 H (2-11) % Eos % (Auto) 1.0 (0-4) % Baso % (Auto) 0.6 (0-2) % Lymph # (Auto) 2.0 (1.2-4.9) X10*3/uL Whiteside # (Auto) 1.3 H (0.1-1.2) X10*3/uL Eos # (Auto) 0.1 (0.0-0.4) X10*3/uL Baso # (Auto) 0.0 (0.0-0.2) X10*3/uL Abs Immat Gran (auto) 0.02 (0.00-0.03) X10*3/uL Absolute Neuts (auto) 3.4 (2.0-8.3) x10*3/uL Absolute Nucleated RBC 0.000 (0.0-0.012) X10*3/uL Nucleated RBC % (auto) 0.0 (0.0-0.2) /100WBC Sodium 142 (135-145) mmol/L Potassium 4.1 (3.3-5.1) mmol/L Chloride 106 (96-108) mmol/L Carbon Dioxide 25 (22-29) mmol/L Anion Gap 15 (12-20) BUN 10 (9-16) mg/dL Creatinine 0.96 (0.5-1.4) mg/dL Estim Creat Clear Calc 83.6 Estimated GFR > 60 Random Glucose 105 (60-115) mg/dL Calcium 9.4 (8.4-10.2) mg/dL Total Bilirubin 0.2 (0.0-1.0) mg/dL AST 20 (5-31) U/L ALT 27 (0-31) U/L Alkaline Phosphatase 90 (39-117) U/L Total Protein 7.9 (6.5-8.0) g/dL Albumin 3.8 (3.5-5.0) g/dL Beta HCG, Quant < 2 mIU/mL Urine Color Yellow Urine Appearance Cloudy Urine pH 6.5 (5.0-9.0) Ur Specific [place] 1.025 (1.005-1.025) Urine Protein Negative (Neg-Trace) mg/dL Urine Glucose (UA) Negative (Negative) mg/dL Urine Ketones Trace (Negative) mg/dL Urine Blood Negative (Negative) Urine Nitrite Negative (Negative) Ur Leukocyte Esterase Moderate (2+) H (Negative) Urine RBC 0-2 (0-2) /HPF Urine WBC 6-10 (0-5) /HPF Ur Squamous Epith Cells 3-5 (0-2) /HPF Urine Bacteria 3+ (None Seen) Hyaline Casts 0-2 (0-2) /LPF Medications Administered Discontinued Medications Generic Name Dose Route Start Last Admin Trade Name Freq PRN Reason Stop Dose Admin Sodium Chloride 500 mls @ 500 mls/hr 12/18/24 01:42 12/18/24 01:57 Ns IV 12/18/24 02:41 500 mls/hr .Q1H ONE Administration Ketorolac Tromethamine 15 mg 12/18/24 01:42 12/18/24 01:57 Ketorolac Tromethamine 15 Mg/Ml Vial IVPUSH 12/18/24 01:43 15 mg ONCE ONE Administration Ondansetron HCl 4 mg 12/18/24 01:42 12/18/24 01:57 Ondansetron Hcl 4 Mg/2 Ml Vial IVPUSH 12/18/24 01:43 4 mg ONCE ONE Administration Discharge Plan Discharge Clinical Impression: Calculus of distal left ureter Patient Disposition: Home, Self-Care Instructions: Ureteral Stones (ED) Additional Instructions: You were passing a kidney stone, it measures 1 mm. It is almost at the juncture where your ureter meets the bladder. It will likely pass overnight. See home care instructions. Use the ketorolac as needed for pain. Uses Zofran as needed for nausea. Take the Flomax as directed over the next 3 days, this will help induce urine flow. Follow up with your primary care provider as needed. Prescriptions: New tamsulosin [Flomax] 0.4 mg capsule 0.4 mg PO DAILY Qty: 3 0RF ketorolac 10 mg tablet 10 mg PO QID PRN (Reason: pain) Qty: 20 0RF Rx Instructions: maximum total duration of 5 days from all oral, intranasal, or parenteral formulations. The patient received an IV dose of Toradol here in the emergency department. ondansetron HCl 4 mg tablet 4 mg PO Q8H PRN (Reason: nausea and vomiting) Qty: 10 0RF No Action prednisone 10 mg tablet 10 mg PO DIRECTED 6 Days Qty: 12 0RF Rx Instructions: Take 3 tabs the first 2 days, then 2 tabs the next 2 days, then 1 tab the next 2 days triamcinolone acetonide 0.025 % cream 1 appl topical BID Qty: 15 0RF Stand Alone Forms: Work/School Release Print Language: Ecuadorean
[2024-12-18] MEDS: Ketorolac Tromethamine 15 MG/ML VIAL IVPUSH (01:57)
[2024-12-18] MEDS: 0.9 % Sodium Chloride 500 ML IV (01:57)
[2024-12-18] MEDS: ondansetron HCL 4 MG/2 ML VIAL IVPUSH (01:57)
[2024-12-18 02:06] LABS: HCG Quantitative < 2 mIU/mL
[2024-12-18 03:29] VITALS: BP 121/69; PULSE 74; RESP 16; TEMP 37.1; O2SAT 99
[2024-12-18] MEDS: oxyCODONE HCl Immed Release 5 MG TABLET PO (03:29)
[2024-12-18] MEDS: Tamsulosin HCL 0.4 MG CAPSULE PO (03:29)
[2024-12-18 03:31] VITALS: BP 121/69; PULSE 74; RESP 16; TEMP 37.1; O2SAT 99
== END 2024-12-18 03:32 | disposition home or self-care (01) ==
PROVIDERS: Physician Assistant Medical; Emergency Provider Emergency Medicine; PCP Internal Medicine
DX: N20.1 Calculus of ureter (principal); R11.2 Nausea with vomiting, unspecified; R10.2 Pelvic and perineal pain; Z79.899 Other long term (current) drug therapy
CPT/HCPCS: 36415; 74176; 80053; 81001; 84702; 85025; 87086; 87147; 96361; 96374; 96375; 99284; 99285; J1885; J2405

== ENCOUNTER → 2024-12-18 01:42 | Outpatient (BNV) | payer OTHER, SELFPAY | PROVIDERS: Emergency Provider Emergency Medicine; PCP Internal Medicine; Visit Provider Radiology Diagnostic Radiology | DX: R10.32 Left lower quadrant pain (principal) | CPT/HCPCS: 74176 ==

== ENCOUNTER 2025-04-01 12:41 | Outpatient (AMB) | payer OTHER, SELFPAY ==
--- NOTE | 2025-04-01 12:49 | MHC.PC.OV ---
Vital Signs 04/01/25 12:50 Height 5 ft 7 in Weight 210 lb BMI 32.9 BP 132/82 Blood Pressure Location Lt brachial Position Sitting Intake Visit Reasons: follow up Intake Note: Patient here for a follow up Service Specialist Required: No Accompanied by: Self / Same As Patient Allergies No Known Allergies Allergy (Verified 04/01/25 12:55) Medication List - Last Reconciled 04/01/25 by Flower Castro MD No Known Home Meds Tobacco use date assessed: 04/01/25 Dental Screening Dental Screen Date: 04/01/25 Did you have a dental visit in the last 12 months?: Yes Did you have a dental problem in the last 6 months where you did not have access to dental care?: No Was dental information given to patient?: Patient has dentist HPI HPI Comments History of Present Illness Details The patient is a 49-year-old female presenting with tobacco use disorder and bilateral elbow pain. She reports a strong desire to quit smoking after resuming due to increased stress from work and personal relationships. Approximately a pack of cigarettes is consumed every two days, with a preference to use nicotine patches again following prior success. Her bilateral elbow pain emerged without discernible injury and restricts activities such as jar opening and carrying. This discomfort, present in both elbows, is significant enough to impact sleep, prompting intermittent use of analgesics. Weight gain to 210 pounds may contribute to this pain, as it deviates from her typical weight of 190 pounds. The patient has a history of nephrolithiasis, with a past kidney stone incident, and she is concerned about recurrence. Post-episode, the patient experienced altered bowel habits, with decreased frequency and satisfaction. Fatigue and previously noted low hemoglobin levels were mentioned, motivating interest in colonoscopy investigations. [facility] Medical History (Updated 04/01/25 @ 14:28 by Flower Castro MD) Bunion of right foot Breast calcification, right Left knee pain Chest pain Left leg pain Blood pressure elevated without history of HTN Surgical History No pertinent past surgical history Family History Father No problems noted. Mother CKD (chronic kidney disease) Hypertension Glaucoma Diabetes Uterine cancer Social History (Updated 06/09/25 @ 13:12 by Flower Castro MD) Housing: Apartment Alcohol intake: never Patient Tobacco Use Status: Current everyday Tobacco user Tobacco use type: Cigarette Cigarette Packs Per Day: 1 e-Cigarette/Vaping Use: Never Used Second Hand Smoke Exposure: No Substance Use Type: Marijuana service: No Current occupational status: employed Current occupational exposures/hazards: No Cognitive needs: No Hearing needs: No Vision needs: Yes Questionnaire PHQ-9 Over the last 2 weeks, how often have you been bothered by any of the following problems? 1. Little interest or pleasure in doing things: not at all 2. Feeling down, depressed, or hopeless: not at all 3. Trouble falling or staying asleep, or sleeping too much: not at all 4. Feeling tired or having little energy: not at all 5. Poor appetite or overeating: not at all 6. Feeling bad about yourself - or that you are a failure or have let yourself or your family down: not at all 7. Trouble concentrating on things, such as reading the newspaper or watching television: not at all 8. Moving or speaking so slowly that other people could have noticed. Or the opposite - being so fidgety or restless that you have been moving around a lot more than usual: not at all 9. Thoughts that you would be better off or of hurting yourself in some way: not at all Total score: 0 Depression Screening Interpretation: Negative Depression Screening Done: Yes 21364 - PHQ-9 Billing: Yes Source: Developed by Drs. Zach Weller, Shelli Price, Cristopher Wheeler and colleagues, with an educational nicole from [employer]. Thrive Questionnaire Date Thrive assessed: 04/01/25 I am a: Patient What is your living situation today?: I have a steady place to live Within the past 12 months, did the food you bought not last and you didn't have the money to get more?: Often true Within the past 12 months, did you worry whether your food would run out before you got money to buy more?: Often true Do you have trouble paying for medicines?: No Do you have trouble getting transportation to medical appointments?: No Do you have trouble paying your heating and electricity bill?: No Do you have trouble taking care of your child, family member or friend?: No Do you have trouble with day-to-day activities such as bathing, preparing meals, shopping, managing finances, etc.?: No Are you currently unemployed and looking for a job?: No Are you interested in more education?: No Please select the resources that you would like help with: None Currently or been in a relationship where the following occur: I choose not to answer THRIVE Score: 2 AUDIT C Alcohol Use Questionnaire (AUDIT-C) 1. How often do you have a drink containing alcohol?: Never Total Score: 0 Score Reviewed/Action Taken: No SHIMON-7 AMB Questionnaire SHIMON-7 Date SHIMON - 7 assessed: 04/01/25 Feeling nervous, anxious, or on edge: 0 = Not at all Not being able to stop or control worryin = Not at all Worrying too much about different things: 0 = Not at all Trouble relaxin = Not at all Being so restless that it is hard to sit still: 0 = Not at all Becoming easily annoyed or irritable: 0 = Not at all Feeling afraid as if something awful might happen: 0 = Not at all Total SHIMON-7 score (0-4 normal; 5-9 mild; 10-14 moderate; 15-21 severe): 0 Source: Developed by Drs. Zach Weller, Shelli Price, Cristopher Wheeler and colleagues, with an educational nicole from [employer]. SHIMON-7 Assessment Billing SHIMON-7 Assessment Tool: SHIMON-7 Assessment 15152 Review of Systems Const All systems reviewed & are unremarkable except as noted in HPI and below Card Denies chest pain at rest, Denies chest pain with activity, Denies edema, Denies irregular heart rhythm, Denies claudication, Denies dyspnea, Denies dyspnea on exertion, Denies orthopnea, Denies paroxysmal nocturnal dyspnea and Denies slow heart rate Resp Denies cough, Denies dyspnea and Denies dyspnea on exertion GI Denies abdominal pain, Denies change in bowel habits, Denies excessive flatus, Denies nausea and Denies vomiting Denies urinary incontinence, Denies urinary hesitancy and Denies urinary urgency Neuro Denies lack of coordination Physical exam (Primary Care) Vital Signs: Last Vital Signs BP 132/82 04/01/25 12:50 BMI result Body Mass Index 32.9 BMI Assessment/Plan discussion: High BMI High, discussed plan: lifestyle, weight reduction, dietary, physical activity and alcohol moderation Tobacco/Smoking Status: Tobacco use Status Tobacco use date assessed 04/01/25 04/01/25 12:56 Patient Tobacco Use Status Current everyday Tobacco 04/01/25 13:12 Tobacco use type Cigarette 04/01/25 13:12 e-Cigarette/Vaping Use Never Used 04/01/25 13:12 Are you ready to quit: No Tobacco cessation counseling provided: Yes Items discussed: Nicotine replacement and QuitWorks Relapse Prevention: discussed the importance of a supportive environment, discussed negative mood or depression after quitting, weight gain after smoking is common and discussed dietary, exercise and/or lifestyle changes Number of minutes spent counselin CPT code: 61169 - 4-10 Minutes PHQ-9: PHQ-9 Score PHQ-9: Total score 0 04/01/25 13:21 Depression Screening Interpretation: Negative Thrive Assessment: Date of Thrive Assessment Date Thrive assessed 04/01/25 04/01/25 12:54 Currently or been in a relationship where the following occur: I choose not to answer Resp Effort & Inspection: normal respiratory effort Auscultation: clear to auscultation bilaterally Cardio Jugular venous distension: no JVD Rate: regular rate Rhythm: regular rhythm Heart sounds: S1 normal heart sound present and S2 normal heart sound present Extrem General: Yes full ROM Coding Level of Care Code Est Pt Level 4 (49779) Complex EM visit Add On G2211 Diagnoses Right elbow pain M25.521 Left elbow pain M25.522 Smoker F17.200 Nephrolithiasis N20.0 Anemia D64.9 Additional Codes SHIMON-7 Assessment Billing - SHIMON-7 Assessment Tool: SHIMON-7 Assessment 07532 ([id number]) PHQ-9 - 83898 - PHQ-9 Billing: Yes ([id number]) Vital Signs *Quality* - CPT code: 85932 - 4-10 Minutes ([id number]) Time Spent (min) 24 Assessment & Plan Assessment & Plan (1) Right elbow pain: Code(s): M25.521 - Pain in right elbow Category: Medical (2) Left elbow pain: Code(s): M25.522 - Pain in left elbow Category: Medical (3) Smoker: Code(s): F17.200 - Nicotine dependence, unspecified, uncomplicated Category: Social Hx (4) Nephrolithiasis: Code(s): N20.0 - Calculus of kidney Category: Medical (5) Anemia: Code(s): D64.9 - Anemia, unspecified Category: Medical Plan The plan for this visit includes resuming nicotine patches to aid in smoking cessation for tobacco use disorder. The patient will undergo radiographic imaging for bilateral elbow pain and a referral to orthopedics is made for further assessment of possible arthritis. Vitamin B6 is prescribed to prevent recurrence of nephrolithiasis, and hemoglobin levels will be monitored due to previously low findings. A colonoscopy has been recommended to explore changes in bowel habits. Weight management advisement has been provided. Patient was informed and verbally consented to the use of an ambient scribe for clinic note documentation during this visit. I discussed the benefits and previous efficacy of nicotine patches with the patient for smoking cessation, emphasizing the need to address tobacco use disorder and its exacerbation by stress factors. The patient was informed about the necessity of x-rays and orthopedic evaluation to identify potential causes of bilateral elbow pain, such as arthritis. For nephrolithiasis, I advised on the use of vitamin B6 supplements as a preventive measure. Concerns regarding anemia will be addressed with repeat hemoglobin assessments. I explained the rationale for recommending colonoscopy to assess changes in bowel habits and the importance of managing weight in context with her musculoskeletal complaints. Follow-up appointments and coordination of care were emphasized to ensure comprehensive management of her health issues. Orders: Orders Vitamin B12 and Folate Today E53.8 - Deficiency of other specified B group vitamins Lipid Panel Today E78.5 - Hyperlipidemia, unspecified Comprehensive [place]. Panel Fast Today R21 - Rash and other nonspecific skin eruption XR elbow RT 2V Today M25.521 - Pain in right elbow Vitamin D 25-OH Total Today E55.9 - Vitamin D deficiency, unspecified Complete Blood Count Auto Diff Today D64.9 - Anemia, unspecified IRON PROFILE Today D64.9 - Anemia, unspecified XR elbow LT 2V Today M25.522 - Pain in left elbow Referrals Open Access Screening Colonoscopy Referral Z12.12 - Encounter for screening for malignant neoplasm of rectum Orthopedics Referral M25.521 - Pain in right elbow, M25.522 - Pain in left elbow Medications: New nicotine 1 patch transdermal DAILY 28 ea 0RF 28 days pyridoxine (vitamin B6) 50 mg PO DAILY 90 tabs 1RF 90 days Patient Instructions: - Begin using nicotine patches as discussed to help quit smoking - Attend scheduled appointment for elbow x-rays and keep follow-up with orthopedic specialists - Take vitamin B6 as prescribed - Monitor for fatigue and report any concerns or changes in your symptoms - Discuss plans for a colonoscopy with your intern brand - Consider ways to manage and reduce weight to alleviate pressure on joints - Report any new or worsening symptoms promptly, especially regarding your elbows or bowel habits
[2025-04-01 12:50] VITALS: BP 132/82; BMI 32.9
== END 2025-04-01 13:21 | disposition home or self-care (01) ==
LOC: HO.HMCH 12:42
PROVIDERS: PCP Internal Medicine; Visit Provider Internal Medicine
DX: M25.521 Pain in right elbow (principal); M25.522 Pain in left elbow; F17.200 Nicotine dependence, unspecified, uncomplicated; N20.0 Calculus of kidney; D64.9 Anemia, unspecified

== ENCOUNTER → 2025-04-01 12:41 | Outpatient (BNVA) | payer OTHER, SELFPAY | PROVIDERS: PCP Internal Medicine; Visit Provider Internal Medicine | DX: M25.521 Pain in right elbow (principal); M25.522 Pain in left elbow; N20.0 Calculus of kidney; D64.9 Anemia, unspecified; F17.210 Nicotine dependence, cigarettes, uncomplicated; Z13.31 Encounter for screening for depression; Z13.30 Encounter for screening examination for mental health and behavioral disorders, unspecified | CPT/HCPCS: 96127 ==

== ENCOUNTER 2025-05-03 07:58 | Emergency (ER) | payer OTHER, SELFPAY ==
--- NOTE | ~2025-05-03 | XR_ITS ---
EXAMINATION: XR second digit, RIGHT CLINICAL INFORMATION: 2nd digit pain, swelling DIP COMPARISON: May 16, 2018. TECHNIQUE: PA view of the right hand. Oblique and lateral views of the right second digit. FINDINGS: No acute cortical disruption or malalignment. No lytic or blastic lesions. No subcutaneous emphysema. No metallic or radiopaque foreign body. There is preservation of the joint spaces of the proximal and distal interphalangeal joints. The metacarpal bones are intact. The carpal bones are intact. Distal radius and ulna are intact. XR/XR finger RT min 2V IMPRESSION: No acute fracture or dislocation or gross foreign body. Negative exam. Electronically signed by: Wilian Cardoso MD 05/03/2025 08:50 AM EDT
[2025-05-03 08:00] VITALS: BP 132/77; PULSE 83; RESP 16; TEMP 36.1; O2SAT 99; BMI 28.2
--- NOTE | 2025-05-03 08:14 | ED.EXTPRO ---
HPI - Extremity Problem General Chief complaint: Extremity Injury, Upper Stated complaint: ? Abscess R Index Finger Time Seen by Provider: 05/03/25 08:09 Source: patient Mode of arrival: ambulatory Limitations: no limitations History of Present Illness ED Provider: sharonda jesus np HPI Narrative: Patient is a 50-year-old female, right-hand dominant who presents emergency department for evaluation of pain localized swelling and a hard lump to the palmar aspect of her right DIP, intermittent redness, pain extending down the finger with full extension, inable to flex the DIP. Onset 3 months ago not improving. Has not yet seen primary care provider in regards to this. No fevers or chills. No pus-like drainage or skin discoloration has been noted. Currently no erythema or warmth. Denies any streaking up the hand/arm. No overt injury Related Data Previous Rx's ?Medication ?Instructions ?Recorded nicotine 21 mg/24 hr daily 1 patch transdermal DAILY 28 days 04/01/25 transdermal patch #28 ea pyridoxine (vitamin B6) 50 mg 50 mg PO DAILY 90 days #90 tabs 04/01/25 tablet Allergies Allergy/AdvReac Type Severity Reaction Status Date / Time No Known Allergies Allergy Verified 05/03/25 08:04 Review of Systems Review of Systems: Yes all other systems are reviewed and are negative PMFSH Past Medical History Attestation statement: The following information was validated with the patient. Source: old records reviewed Medical History Bunion of right foot Breast calcification, right Left knee pain Chest pain Left leg pain Blood pressure elevated without history of HTN Surgical History No pertinent past surgical history Family History Family History Father No problems noted. Mother CKD (chronic kidney disease) Hypertension Glaucoma Diabetes Uterine cancer Social History Social History (Updated 04/01/25 @ 13:12 by Flower Castro MD) Housing: Apartment Alcohol intake: never Patient Tobacco Use Status: Current everyday Tobacco user Tobacco use type: Cigarette Cigarette Packs Per Day: 1 e-Cigarette/Vaping Use: Never Used Second Hand Smoke Exposure: No Substance Use Type: Marijuana service: No Current occupational status: employed Current occupational exposures/hazards: No Cognitive needs: No Hearing needs: No Vision needs: Yes Physical Exam Vital Signs: Vital Signs: Last Vital Signs Temp 97.0 F 05/03/25 09:44 Pulse 83 05/03/25 09:44 Resp 16 05/03/25 09:44 BP 132/77 05/03/25 09:44 Pulse Ox 99 05/03/25 09:44 O2 Del Method Room Air 05/03/25 09:44 BMI result Body Mass Index 28.2 Appearance: Alert.?Oriented to person, place and time. No acute distress.?Normal affect. CVS: Heart sounds normal. Normal heart rate and rhythm.? Pulses normal.?? Respiratory: No respiratory distress.? Lung sounds clear to auscultation bilaterally??? Skin: Skin warm and dry.? Normal skin color.? Extremities: No lower extremity edema.? Palmar aspect of right DIP with firm nodule, overlying callus skin, DIP held in approximate 45 degrees flexion as point of most comfort not able to flex any further, worsening pain with full extension. No erythema. No warmth. Finger pad without pain tenderness or swelling. Neuro: Moves all extremities spontaneously. Sensation intact bilaterally. Ambulates with normal steady gait. Medical Decision Making Medical Decision Making MDM Narrative: Patient is a 50-year-old female with past medical history of tobacco use disorder, nephrolithiasis, anemia who presents emergency department for evaluation of a painful right finger as per HPI. On examination Palmar aspect of right DIP with firm nodule, overlying callus skin, DIP held in approximate 45 degrees flexion as point of most comfort not able to flex any further, worsening pain with full extension. No erythema. No warmth. Finger pad without pain tenderness or swelling. Most concerning at this time for calcific tendinitis of the finger. Less consistent with felon/ pulp space infection, no severe pain swelling erythema to the pad of the fingertip. no vesicles to suggest herpetic jadiel. No erythema or warmth to suggest cellulitis or abscess. Obtain a XR to exclude acute osseous abnormality; degenerative changes, fracture. XR without acute pathology. Reviewed conservative treatment, outpatient follow-up with hand specialist, worrisome signs symptoms that would warrant re-evaluation emergency department. All questions answered. Differential Diagnosis Differential Diagnoses: The differential diagnosis associated with the presentation includes (See narrative above) Independent Interpretation I performed an independent interpretation of an: Plain X-Ray (No acute fracture dislocation) Radiology Impression Discussion of test interpretation with radiology: I have reviewed the radiologist's reading. Radiologist Impression: XR/XR finger RT min 2V IMPRESSION: No acute fracture or dislocation or gross foreign body. Negative exam. External Record Review External record reviewed: Outpatient record Prescription Management I considered prescription management with: Pain Medication Discharge Plan Discharge Clinical Impression: Tendinitis of finger of right hand Patient Disposition: Home, Self-Care Additional Instructions: As discussed, your exam today is concerning for calcific tendinitis of the finger. You can take ibuprofen 200 mg, 3 tablets (600mg) every 6-8 hours as needed for pain, in addition to Tylenol 500 mg, 2 tablets (1,000mg) every 4-6 hours as needed for pain, but not to exceed 3 doses daily (3,000mg).? Consider use of a finger splint, clamshell shaped finger splint available over the counter at most [employer], [employer], etc. to immobilize the finger and limit motion particularly to be used during sleep as symptoms worsen at night. He has been provided contact information for the orthopedic office associated with our hospital for follow-up. You may also contact your primary care provider for follow-up. Return with any new or worsening symptoms or concerns which include but is not limited to worsening pain or swelling, redness, warmth, pus-like drainage, streaking redness of the hand/arm, swelling extending down the finger, fevers, chills. Prescriptions: No Action nicotine 21 mg/24 hr patch 24 hour 1 patch transdermal DAILY 28 Days Qty: 28 0RF pyridoxine (vitamin B6) 50 mg tablet 50 mg PO DAILY 90 Days Qty: 90 1RF Referrals: Antonette Real MD [Physician, Hand Surgery] Clinical Impression: Tendinitis of finger of right hand Flower Lane MD [Primary Care Provider, Internal Medicine] Interventions: ED Discharge Assessment Last Done: 05/03/25 09:44 Discharge Date/Time: 05/03/25 09:45 Print Language: [place]se
[2025-05-03 09:44] VITALS: BP 132/77; PULSE 83; RESP 16; TEMP 36.1; O2SAT 99
== END 2025-05-03 09:45 | disposition home or self-care (01) ==
PROVIDERS: Emergency Provider Emergency Medicine; PCP Internal Medicine
DX: M77.8 Other enthesopathies, not elsewhere classified (principal); M79.644 Pain in right finger(s)
CPT/HCPCS: 73140; 99282; 99283

== ENCOUNTER → 2025-05-03 08:28 | Outpatient (BNV) | payer OTHER, SELFPAY | PROVIDERS: Emergency Provider Emergency Medicine; PCP Internal Medicine; Visit Provider Radiology Diagnostic Radiology | DX: M79.644 Pain in right finger(s) (principal) | CPT/HCPCS: 73140 ==

== ENCOUNTER 2025-05-09 10:55 | Outpatient (AMB) | payer OTHER, SELFPAY ==
[2025-05-09 11:21] VITALS: BMI 28.2
--- NOTE | 2025-05-09 11:21 | A.OFFVIS_ITS ---
Vital Signs 05/09/25 11:21 Height 5 ft 6 in Weight 175 lb BMI 28.2 Intake Visit Reasons: ED-Tendinitis of finger of right hand Intake Note: Dorene is a 50 year old right-hand dominant who presents today for an emergency department follow up for evaluation of pain, localized swelling and a hard lump to the palmar aspect of her right hand index finger DIP joint. States this is painful. States she is not able to bend her finger. No injury or trauma patient can recall. Also has numbness and tingling. Allergies No Known Allergies Allergy (Verified 05/09/25 11:32) HPI HPI ED-Tendinitis of finger of right hand: Details: Dorene is a 50 year old right-hand dominant who presents today for an emergency department follow up for evaluation of pain, localized swelling and a hard lump to the palmar aspect of her right hand index finger DIP joint. States this is painful. States she is not able to bend her finger. No injury or trauma patient can recall. Also has numbness and tingling. [facility] Medical History Bunion of right foot Breast calcification, right Left knee pain Chest pain Left leg pain Blood pressure elevated without history of HTN Surgical History No pertinent past surgical history Family History Father No problems noted. 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 Neuro: Diminished sensation to the right index finger Normal sensation of the tips of all other digits of the right hand in the office today Vascular: Cap refill brisk Pain: Tenderness to palpation about mass on volar aspect of right index finger just distal to the DIP joint Pain with range of motion of the right index finger ROM: Patient is able to make a closed fist with the right hand, reports pain with flexion of right index finger Skin: There is what appears to be a proximally 1 cm No lacerations or abrasions. General: No ecchymosis, erythema, or evidence of infection. Psych: Appears grossly normal Affect normal Attitude cooperative Assessment & Plan Assessment & Plan (1) Mass of finger of right hand: Code(s): R22.31 - Localized swelling, mass and lump, right upper limb Category: Medical (2) Numbness and tingling of right hand: Code(s): R20.0 - Anesthesia of skin; R20.2 - Paresthesia of skin Category: Medical Plan 1. Mass of right index finger Patient is educated about this condition Patient is educated about the typical treatment course Mass does not appear entirely consistent with ganglion cyst, therefore I feel that getting an MRI to assess the true nature of this mass and whether it is something that needs to be removed surgically Patient understands this and is amenable to this plan MRI ordered 2. Numbness and tingling of right hand EMG and nerve conduction study ordered to help assess the nerves of the right upper extremity Follow-up after EMG and nerve conduction study for results review and discussion of further treatment options that are indicated Patient is amenable to this plan Follow-up after imaging and nerve conduction study Orders: Orders MR hand RT wo/w con Today R22.31 - Localized swelling, mass and lump, right upper limb NE nerve conduction velocity Today R20.0 - Anesthesia of skin, R20.2 - Paresthesia of skin NE electromyogram (EMG) Today R20.0 - Anesthesia of skin, R20.2 - Paresthesia of skin Coding Level of Care Code New Pt Level 3 (18052) Diagnoses Mass of finger of right hand R22.31 Numbness and tingling of right hand R20.0; R20.2
== END 2025-05-09 11:46 | disposition home or self-care (01) ==
LOC: HO.HOS 10:56
PROVIDERS: PCP Internal Medicine
DX: R22.31 Localized swelling, mass and lump, right upper limb (principal); R20.0 Anesthesia of skin; R20.2 Paresthesia of skin
CPT/HCPCS: 99203

== ENCOUNTER 2025-05-20 10:22 | Outpatient (REF) | payer OTHER, SELFPAY ==
--- NOTE | ~2025-05-20 | MR_ITS ---
EXAM: MRI of the right hand without and with IV contrast. TECHNIQUE: Multiplanar - multisequence imaging through an upper extremity, right hand, was performed without and with IV contrast. Contrast: [5 mL Gadavist INDICATION: -R22.31 - Localized swelling, mass and lump, right upper limb, second digit of the right hand PRIOR: X-ray May 03, 2025 FINDINGS: Soft tissues: There is a circumscribed mass in the distal second digit. It is in the volar soft tissues located deep to the dermis and superficial to the flexor digitorum profundus tendon at the insertion of the base of the distal phalanx. It measures 9 x 8 x 9 mm (CC by AP by transverse). On T1 imaging, it is low signal. Fluid sensitive sequences, demonstrates heterogeneous low signal. With contrast, there is no clear enhancement. There is no infiltration into the adjacent flexor tendon or bone. Ligaments: Collateral ligaments appear intact. Muscles, tendons, pulleys: Flexor and extensor tendons appear intact. There is no bowstringing flexor tendons. There is no muscle edema, fatty streaking, or atrophy. Articular cartilage/Joint capsular structures: Intact Bones/Marrow: There is no marrow edema or marrow replacing lesions. MR/MR hand RT wo/w con IMPRESSION: There is a well-circumscribed mass in the distal end of the second digit located superficial to the insertion of the flexor digitorum profundus and deep to the dermis. It demonstrates hypointense signal on T1 and fluid sensitive sequences. It demonstrates little to no enhancement. 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 Other etiologies are less likely but include foreign body granuloma, gouty tophus, leiomyoma, and giant cell tumor of tendon sheath. Electronically signed by: Yusuf Garces MD 05/20/2025 12:08 PM EDT
== END 2025-05-20 10:23 | disposition home or self-care (01) ==
LOC: HO.MRI 10:22
PROVIDERS: PCP Internal Medicine; Visit Provider Midwife
DX: R22.31 Localized swelling, mass and lump, right upper limb (principal)
CPT/HCPCS: 73220; A9585

== ENCOUNTER → 2025-05-20 10:34 | Outpatient (BNV) | payer OTHER, SELFPAY | PROVIDERS: PCP Internal Medicine; Visit Provider Radiology Diagnostic Radiology | DX: R22.31 Localized swelling, mass and lump, right upper limb (principal) | CPT/HCPCS: 73220 ==

== ENCOUNTER 2025-07-22 10:57 | Outpatient (AMB) | payer OTHER, SELFPAY ==
[2025-07-22 11:01] VITALS: BMI 33.9
--- NOTE | 2025-07-22 11:01 | A.OFFVIS_ITS ---
Vital Signs 07/22/25 11:01 Height 5 ft 6 in Weight 210 lb BMI 33.9 Intake Visit Reasons: OV-Right hand MRI review Intake Note: Dorene is a 50 year old right-hand dominant female who presents today for follow up of her Right Index Finger Mass. At her last visit an MRI of the Right Hand was ordered to assess the true nature of this mass as it was not consistent with a ganglion cyst. Allergies No Known Allergies Allergy (Verified 07/22/25 11:02) HPI HPI OV-Right hand MRI review: Details: Dorene is a 50 year old right-hand dominant female who presents today for follow up of her Right Index Finger Mass. At her last visit an MRI of the Right Hand was ordered to assess the true nature of this mass as it was not consistent with a ganglion cyst. today, the patient reports that she continues to experience significant pain in the area of the mass, but denies any significant growth or change in symptoms since previous evaluation. [facility] Medical History Bunion of right foot Breast calcification, right Left knee pain Chest pain Left leg pain Blood pressure elevated without history of HTN Surgical History No pertinent past surgical history Family History Father No problems noted. 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 Neuro: Diminished sensation to the right index finger Normal sensation of the tips of all other digits of the right hand in the office today Vascular: Cap refill brisk Pain: Tenderness to palpation about mass on volar aspect of right index finger just distal to the DIP joint Pain with range of motion of the right index finger ROM: Patient is able to make a closed fist with the right hand, reports pain with flexion of right index finger Skin: There is what appears to be a proximally 1 cm diameter mass of the volar aspect of the index finger of the right hand No lacerations or abrasions. General: No ecchymosis, erythema, or evidence of infection. Psych: Appears grossly normal Affect normal Attitude cooperative Results Reviewed Results Reviewed: MR/MR hand RT wo/w con IMPRESSION: There is a well-circumscribed mass in the distal end of the second digit located superficial to the insertion of the flexor digitorum profundus and deep to the dermis. It demonstrates hypointense signal on T1 and fluid sensitive sequences. It demonstrates little to no enhancement. 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 Other etiologies are less likely but include foreign body granuloma, gouty tophus, leiomyoma, and giant cell tumor of tendon sheath. Electronically signed by: Yusuf Garces MD 05/20/2025 12:08 PM EDT Assessment & Plan Assessment & Plan (1) Mass of finger of right hand: Code(s): R22.31 - Localized swelling, mass and lump, right upper limb Category: Medical Plan 1. Mass of right index finger I educated the patient about the condition. I discussed both operative and nonoperative treatment options. The patient would like to proceed with surgery. The risks and benefits of operative treatment were discussed with the patient and the patient wishes to proceed with surgery. These risks include, but are not limited to, risk of damage to blood vessels, nerves, tendons, infection, recurrence, incomplete relief of preoperative symptoms, persistent pain, pos sible need for further surgery, and the risks associated with regional blocks and/or anesthesia. Plan is to take the patient to the operating room at some point in the next few weeks for the following procedures: 1. Right index finger mass excision under general anesthesia All of the preoperative paperwork including the consent was discussed today. All of the patient's questions were answered in the clinic today. The patient understands that they will be in contact with our life insurance underwriter to discuss scheduling their procedure. Patient denies diabetes, blood thinners, asthma, heart issues, lung issues, kidney issues patient does smoke cigarettes, is educated on the potential effects of cigarette smoking on postoperative wound healing Coding Level of Care Code Est Pt Level 4 (94067) Diagnoses Mass of finger of right hand R22.31
== END 2025-07-22 12:06 | disposition home or self-care (01) ==
LOC: HO.HOS 10:58
PROVIDERS: PCP Internal Medicine
DX: R22.31 Localized swelling, mass and lump, right upper limb (principal)
CPT/HCPCS: 99214

== ENCOUNTER 2025-07-25 13:35 | Day surgery (SDC) | payer OTHER, SELFPAY ==
--- NOTE | 2025-07-24 09:28 | HO.ANESPROP2 ---
HPI - Anesthesia Eval Consult details Narrative: 50yo F for Right Index Finger Excision Mass PMFSH Active Problems Active Problems: All Active Problems Numbness and tingling of right hand (Acute) Mass of finger of right hand (Acute) Anemia (Acute) Nephrolithiasis (Acute) Smoker (Acute) Right elbow pain (Acute) Left elbow pain (Acute) Screening for cervical cancer (Acute) Dermatitis (Acute) Rash (Acute) Bunion of right foot (Acute) Breast calcification, right (Acute) Right foot pain (Acute) Left foot pain (Acute) Physical exam (Acute) Left knee pain (Acute) Chest pain (Acute) Left leg pain (Acute) Blood pressure elevated without history of HTN (Acute) Past Medical History Medical History Bunion of right foot Breast calcification, right Left knee pain Chest pain Left leg pain Blood pressure elevated without history of HTN Family History Family History Father No problems noted. 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
[2025-07-25 05:57] VITALS: BMI 33.9
[2025-07-25 14:08] VITALS: BP 174/70; PULSE 72; RESP 20; TEMP 35.8; O2SAT 97
[2025-07-25] MEDS: Lactated Ringers 1,000 ML 100 ML IVCONT (14:12)
[2025-07-25 14:24] LABS: UPreg QC Valid YES
--- NOTE | 2025-07-25 16:23 | MHC.SHP ---
Pre-Procedural Eval Section A - 24 Hr Update-Section A only Date of Service: 07/25/25 The patient is an INPATIENT: No Changes since office visit: No Cold of Flu in the past 2 weeks, No New Medical Problems, No Changes in Medication and No Patient answered all questions The patient has been examined within 24 hours of the surgical procedure. The History & Physical has been completed within 30 days and I have reviewed it.: Yes Section B - Complete if H&P > 30 days Chief Complaint: Localized swelling, mass and lump, right upper barr Allergies: Allergies Allergy/AdvReac Type Severity Reaction Status Date / Time No Known Allergies Allergy Verified 07/22/25 11:02 Plan Diagnosis/Plan: Unchanged I have reviewed the history and physical and performed a pertinent physical examination on my patient. No changes have occurred unless specified. I spoke with the patient and she wishes to have the procedure performed under local anesthesia. Time Spent With Patient Time: Total time managing care of this patient today ____ minutes.
--- NOTE | 2025-07-25 16:23 | W.PM.OPN ---
Operative Note Operative Note Date of Service: 07/25/25 Narrative: Operative Note Preop diagnosis: 1. Right index finger soft tissue mass Postop diagnosis: same Procedure: 1. Right index finger soft tissue mass excision Surgeon: Antonette Real MD [employer] Technician: None Anesthesia: digital block using 1% lidocaine with epinephrine Findings: A 1 cm diameter white spherical mass filled with a white cheesy material, most consistent with a epidermal inclusion cyst EBL: Less than 5 mL Tourniquet time: None Specimens: Right index finger soft tissue mass Complications: None Disposition: Brought to recovery room in stable condition Plan: Follow-up for 7-10 days for wound check and suture removal and to check pathology Indications: The patient is 50 years old, with a right index finger soft tissue mass . The risks and benefits of operative treatment including but not limited to risk of damage to blood vessels, nerves, tendons, infection, persistent pain, persistent symptoms, recurrence or possible need for additional surgery were discussed with the patient and the patient wishes to proceed with surgery. Procedure: Once consent was obtained a digital block was performed in the preop area using a combination of 1% lidocaine with epinephrine. The patient was then brought back to the operating suite and placed on the operative table in supine position. The right upper extremity was prepped and draped in a standard surgical fashion. Once assured that we had a good block, I made an oblique incision over the mass located on the volar aspect of the index finger from the D IP flexion crease distally. It measured approximately 1-1.2 cm in diameter. The incision was made through the skin to the subcutaneous tissues using a 15. Blade. I then carefully dissected about the mass dissecting it free from the skin and from its attachment to the underlying flexor tendon using tenotomy and iris scissors. The mass was removed and placed on the back table to be sent for histopathology. The mass was A 1 cm diameter white spherical mass filled with a white cheesy material, most consistent with a epidermal inclusion cyst. Once satisfied with our mass excision the wound was copiously irrigated with normal saline and hemostasis was obtained with a brief period of local pressure. The skin edges were reapproximated with some 5.0 nylon suture material and a sterile dressing was applied. The patient appears to have tolerated the procedure well and with no complications. All digits were well vascularized at the conclusion of the case.
[2025-07-25 17:39] VITALS: BP 166/77; PULSE 72; RESP 16; TEMP 37; O2SAT 100
== END 2025-07-25 18:00 | disposition home or self-care (01) ==
PROVIDERS: Anesthesiology; PCP Internal Medicine; Visit Provider Orthopaedic Surgery
PROC: (CPT 11422; principal; 2025-07-25 13:40)
DX: L72.0 Epidermal cyst (principal); R03.0 Elevated blood-pressure reading, without diagnosis of hypertension; F17.210 Nicotine dependence, cigarettes, uncomplicated
CPT/HCPCS: 11422; 81025; 88305; J0131; J0165; J0690; J2003; J2004

== ENCOUNTER → 2025-07-25 13:35 | Outpatient (BNV) | payer OTHER, SELFPAY | PROVIDERS: PCP Internal Medicine; Visit Provider Orthopaedic Surgery | DX: L72.0 Epidermal cyst (principal) | CPT/HCPCS: 26160 ==

== ENCOUNTER 2025-08-07 09:37 | Outpatient (AMB) | payer OTHER, SELFPAY ==
--- NOTE | 2025-08-07 09:38 | MHC.OFFVIS ---
Vital Signs 08/07/25 09:47 Height 5 ft 7 in Weight 210 lb BMI 32.9 Handedness Right Intake Visit Reasons: PO RT IF mass exc 07/25/25 AR Intake Note: Dorene, 50 years old & right hand dominant, presents today in office post operatively status post undergoing a right index finger soft tissue mass excision, DOS: 07/25/[address] Antonette Real. Today she expresses pain and sensitivity at the distal end of her right index finger. She says she had some numbness and tinling however this resolved. Describes the feeling on her finger as weird because it was cut into. She denies drainage. Reports her symptoms are also on the lateral and medial sides of the right index finger. she is requesting to discuss work status. Allergies No Known Allergies Allergy (Verified 08/07/25 09:48) HPI HPI PO RT IF mass exc 07/25/25 AR: Details: Dorene, 50 years old & right hand dominant, presents today in office post operatively status post undergoing a right index finger soft tissue mass excision, DOS: 07/25/[address] Antonette Real. Today she expresses pain and sensitivity at the distal end of her right index finger. She says she had some numbness and tinling however this resolved. Describes the feeling on her finger as weird because it was cut into. She denies drainage. Reports her symptoms are also on the lateral and medial sides of the right index finger. she is requesting to discuss work status. [facility] Medical History Mass of finger of right hand Bunion of right foot Breast calcification, right Left knee pain Chest pain Left leg pain Blood pressure elevated without history of HTN Surgical History No pertinent past surgical history Family History Father No problems noted. 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 Neuro: Diminished sensation to the right index finger Normal sensation of the tips of all other digits of the right hand in the office today Vascular: Cap refill brisk Pain: Minimal Tenderness to palpation about mass on volar aspect of right index finger just distal to the DIP joint Pain with range of motion of the right index finger ROM: Patient is able to make a closed fist with the right hand, reports pain with flexion of right index finger Skin: Well approximated and well healing incision site noted of the right index finger of the volar aspect No lacerations or abrasions. General: No ecchymosis, erythema, or evidence of infection. Psych: Appears grossly normal Affect normal Attitude cooperative Results Reviewed Results Reviewed: Diagnosis Soft tissue, right 2nd finger, excision: Epidermal inclusion cyst Assessment & Plan Assessment & Plan (1) Mass of finger of right hand: Comment: right index finger soft tissue mass excision DOS: 07/25/2025 Code(s): R22.31 - Localized swelling, mass and lump, right upper limb Category: Medical Plan 1. Status post right index finger epidermal inclusion cyst excision DOS 07/25/2025 Patient appears to be recovering well postoperatively Patient is educated about the typical recovery course No under water for one-week, 2 lb weight limit x2 weeks Pathology report reveals epidermal inclusion cyst, no malignant findings, findings are reviewed with the patient Patient understands this and is amenable to this plan Follow-up as needed with any acute concerns Coding Level of Care Code Global (71769) Diagnoses Mass of finger of right hand R22.31
[2025-08-07 09:47] VITALS: BMI 32.9
== END 2025-08-07 10:20 | disposition home or self-care (01) ==
LOC: HO.HOS 09:38
PROVIDERS: PCP Internal Medicine
DX: R22.31 Localized swelling, mass and lump, right upper limb (principal)
CPT/HCPCS: 99024

== ENCOUNTER 2025-08-19 13:39 | Outpatient (AMB) | payer OTHER, SELFPAY ==
[2025-08-19 13:49] VITALS: BP 128/82; PULSE 82; O2SAT 99; BMI 35.4
--- NOTE | 2025-08-19 13:49 | MHC.PC.OV ---
Vital Signs 08/19/25 13:49 Height 5 ft 6 in Weight 219 lb 2 oz BMI 35.4 BP 128/82 Blood Pressure Location Lt brachial Position Sitting Pulse 82 Pulse Source Pulse Oximeter Pulse Oximetry (%) 99 Oxygen Delivery Method Room Air Intake Visit Reasons: pe Size Changer Required: No Accompanied by: Self / Same As Patient Allergies No Known Allergies Allergy (Verified 08/19/25 13:57) Medication List - Last Reconciled 08/19/25 by Flower Castro MD No Known Home Meds Tobacco use date assessed: 08/19/25 Dental Screening Dental Screen Date: 08/19/25 Did you have a dental visit in the last 12 months?: No Did you have a dental problem in the last 6 months where you did not have access to dental care?: No Was dental information given to patient?: Patient has dentist HPI HPI Comments History of Present Illness Details The patient is a 50-year-old female presenting for an annual physical examination and to address several health concerns. The patient reports experiencing significant stress and anxiety related to her current relationship, which has recently become more pronounced. She denies depression or thoughts of self-harm but expresses feeling upset and a need for counseling to prevent an emotional outburst, including stating she wants to choke her partner. The patient notes the stress has led her to smoke more heavily, exceeding her usual one pack per day. She reports her menstrual cycle has become irregular and unpredictable following an episode of kidney stones. Her periods now vary in timing and flow, sometimes occurring twice in one month, which she suspects may be signs of perimenopause. Her last Pap smear was about two years ago, and she assumes the results were normal as she was not contacted. She has a complaint of an itchy nipple but denies any associated discharge. Her last mammogram was in 2022, and she is due for her annual screening. The patient is due for a colonoscopy but has never had one; a previously provided Cologuard kit was discarded. Her last Tdap vaccine was in 2015 and is due for a booster next year. She smokes about one pack of cigarettes per day and also uses marijuana. She denies alcohol use. Her mother is and had a history of chronic kidney disease, diabetes, and cancer. Her father is alive with no known medical conditions. [facility] Medical History Mass of finger of right hand Bunion of right foot Breast calcification, right Left knee pain Chest pain Left leg pain Blood pressure elevated without history of HTN Surgical History No pertinent past surgical history Family History Father No problems noted. 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 Current occupational exposures/hazards: No Cognitive needs: No Hearing needs: No Vision needs: Yes Questionnaire Thrive Questionnaire Date Thrive assessed: 04/01/25 I am a: Patient What is your living situation today?: I have a steady place to live Within the past 12 months, did the food you bought not last and you didn't have the money to get more?: Often true Within the past 12 months, did you worry whether your food would run out before you got money to buy more?: Often true Do you have trouble paying for medicines?: No Do you have trouble getting transportation to medical appointments?: No Do you have trouble paying your heating and electricity bill?: No Do you have trouble taking care of your child, family member or friend?: No Do you have trouble with day-to-day activities such as bathing, preparing meals, shopping, managing finances, etc.?: No Are you currently unemployed and looking for a job?: No Are you interested in more education?: No Please select the resources that you would like help with: None Currently or been in a relationship where the following occur: I choose not to answer THRIVE Score: 2 AUDIT C Alcohol Use Questionnaire (AUDIT-C) 1. How often do you have a drink containing alcohol?: Never 3. How often do you have six or more drinks on one occasion?: Never Total Score: 0 Score Reviewed/Action Taken: No SHIMON-7 AMB Questionnaire SHIMON-7 Date SHIMON - 7 assessed: 04/01/25 Source: Developed by Drs. Zach Weller, Shelli Price, Cristopher Wheeler and colleagues, with an educational nicole from [employer]. Review of Systems Const All systems reviewed & are unremarkable except as noted in HPI and below Card Denies chest pain at rest, Denies chest pain with activity, Denies edema, Denies irregular heart rhythm, Denies claudication, Denies dyspnea, Denies dyspnea on exertion, Denies orthopnea, Denies paroxysmal nocturnal dyspnea and Denies slow heart rate Resp Denies cough, Denies dyspnea and Denies dyspnea on exertion GI Denies abdominal pain, Denies change in bowel habits, Denies excessive flatus, Denies nausea and Denies vomiting Physical exam (Primary Care) Vital Signs: Last Vital Signs Pulse 82 08/19/25 13:49 BP 128/82 08/19/25 13:49 Pulse Ox 99 08/19/25 13:49 Oxygen Delivery Method Room Air 08/19/25 13:49 BMI result Body Mass Index 35.4 BMI Assessment/Plan discussion: High BMI High, discussed plan: lifestyle, weight reduction, dietary and physical activity Tobacco/Smoking Status: Tobacco use Status Tobacco use date assessed 08/19/25 08/19/25 13:53 Patient Tobacco Use Status Current everyday Tobacco 08/19/25 13:53 Tobacco use type Cigarette 08/19/25 13:53 e-Cigarette/Vaping Use Never Used 08/19/25 13:53 Thrive Assessment: Date of Thrive Assessment Date Thrive assessed 04/01/25 08/19/25 13:53 Currently or been in a relationship where the following occur: I choose not to answer [facility] [place] Head: Yes normal to inspection, Yes normocephalic and Yes atraumatic Ears: external ears normal Eyes General: appearance normal, both eyes and all related structures Eyelids: Yes eyelids normal Conjunctivae: conjunctivae normal Neck Neck: Yes normal visual inspection and Yes supple Resp Effort & Inspection: normal respiratory effort Auscultation: clear to auscultation bilaterally Cardio Jugular venous distension: no JVD Rate: regular rate Rhythm: regular rhythm Heart sounds: S1 normal heart sound present and S2 normal heart sound present GI Inspection: Yes normal to inspection Palpation (GI): Soft to palpation and nontender Auscultation: normal bowel sounds Skin General skin exam: no rashes or lesions noted Neuro General: no focal motor deficits Extrem General: Yes full ROM Psych Appearance: grossly normal Office Procedures Flu Questionnaire Does the patient have a severe egg allergy?: No Does the patient have severe life threatening allergies?: No Does the patient have a fever or illness today?: No Has the patient ever had Guillain-[place] Syndrome?: No Has the patient ever had any past reaction to a flu shot?: No Immunizations Fluarix [id number] (PF) 45 mcg (15 mcg x 3)/0.5 mL IM syringe Performing Provider: Flower Castro MD [facility] [place] Administered by: SHANON Blancas on 08/19/25 14:20 Dose Route Admin Location Dispensed Lot Number Expiration Date NDC Projection Technician 0.5 mL IM Left Deltoid 0.5 mL [id number] 04/22/26 [id number] cFares VIS Given Date VIS Provided VIS Publication Date 08/19/25 Single Vaccine 24 Eligibility Eligibility Date Funding Source Not [facility] Eligible 08/19/25 Private Coding Level of Care Code Est Pt Level 3 (61479) Est Pt Prev Care 40-64y(34338) Diagnoses Physical exam Z00.00 Acute adjustment disorder F43.20 DUB (dysfunctional uterine bleeding) N93.8 Time Spent (min) 32 Assessment & Plan Assessment & Plan (1) Physical exam: Code(s): Z00.00 - Encounter for general adult medical examination without abnormal findings Category: Medical (2) Acute adjustment disorder: Code(s): F43.20 - Adjustment disorder, unspecified Category: Medical (3) DUB (dysfunctional uterine bleeding): Code(s): N93.8 - Other specified abnormal uterine and vaginal bleeding Category: Medical Plan Plan 1. Encounter for general adult medical examination without abnormal findings Z00.00 Repeat in a year. Last Pap smear 2 years ago. Last mammogram 2022 and will be order. Has never had screening for colon cancer. Next Tdap should be 2025. Flu vaccine will be done today. Orders: Orders MM tomosynthesis screening BI Today Z12.31 - Encounter for screening mammogram for malignant neoplasm of breast Lipid Panel Today Z00.00 - Encounter for general adult medical examination without abnormal findings Complete Blood Count Auto Diff Today D64.9 - Anemia, unspecified Comprehensive [place]. Panel Fast Today Z00.00 - Encounter for general adult medical examination without abnormal findings IRON PROFILE Today D64.9 - Anemia, unspecified Vitamin D 25-OH Total Today E55.9 - Vitamin D deficiency, unspecified Vitamin B12 and Folate Today E53.8 - Deficiency of other specified B group vitamins Influenza [id number] Immunization Today Z23 - Encounter for immunization Referrals Cologuard Test Z12.11 - Encounter for screening for malignant neoplasm of colon, Z12.12 - Encounter for screening for malignant neoplasm of rectum BELT TENDER Referral N93.8 - Other specified abnormal uterine and vaginal bleeding Counseling Referral F43.20 - Adjustment disorder, unspecified
== END 2025-08-19 15:24 | disposition home or self-care (01) ==
PROVIDERS: PCP Internal Medicine; Visit Provider Internal Medicine
DX: Z00.00 Encounter for general adult medical examination without abnormal findings (principal); F43.20 Adjustment disorder, unspecified; N93.8 Other specified abnormal uterine and vaginal bleeding; Z23 Encounter for immunization

== ENCOUNTER → 2025-08-19 13:39 | Outpatient (BNVA) | payer OTHER, SELFPAY | PROVIDERS: PCP Internal Medicine; Visit Provider Internal Medicine | DX: Z00.00 Encounter for general adult medical examination without abnormal findings (principal); F41.9 Anxiety disorder, unspecified; N92.6 Irregular menstruation, unspecified; F43.20 Adjustment disorder, unspecified; N93.8 Other specified abnormal uterine and vaginal bleeding; D64.9 Anemia, unspecified; Z23 Encounter for immunization | CPT/HCPCS: 90471; 90656 ==

== ENCOUNTER 2025-08-30 14:01 | Outpatient (REF) | payer OTHER, SELFPAY ==
[2025-08-30 14:39] LABS: MANUAL DIFF FLAG NO
[2025-08-30 16:00] LABS: Hematocrit 39.4 % (37.0-47.0); Hemoglobin 12.5 g/dl (12.0-16.0); Imm Gran Abs Auto 0.02 X10*3/uL (0.00-0.03); Imm Gran Pct Auto 0.2 % (0.0-0.4); Lymphocytes Absolute Auto 3.0 X10*3/uL (1.2-4.9); Mean Corpuscular HGB Conc 31.7 g/dl (31.0-35.0); Mean Corpuscular Hemoglobin 25.8 pg (27.0-33.0); Mean Corpuscular Volume 81.2 fL (80.0-98.0); NRBC Abs Auto 0.000 X10*3/uL (0.0-0.012); NRBC Pct Auto 0.0 /100WBC (0.0-0.2); Platelet Count 406 X10*3/uL (160-400); Red Blood Count 4.85 X10*6/uL (4.20-5.50); White Blood Count 9.3 X10*3/uL (4.8-10.8)
[2025-08-30 16:50] LABS: Alanine Aminotransferase 49 U/L (0-31); Albumin Level 4.5 g/dL (3.5-5.0); Alkaline Phosphatase 101 U/L (39-117); Anion Gap 10 (12-20); Aspartate Amino Transferase 23 U/L (5-31); Blood Urea Nitrogen 11 mg/dL (9-16); Calcium 9.8 mg/dL (8.4-10.2); Carbon Dioxide 28 mmol/L (22-29); Chloride 107 mmol/L (96-108); Cholesterol 213 mg/dL (<200); Estimated Glomerular Filt Rate > 60; HDL Cholesterol 39 mg/dL (>40); Iron 67 mcg/dL (30-160); Percent Iron Saturation 21 % (15-50); Potassium 4.3 mmol/L (3.3-5.1); Sodium 141 mmol/L (135-145); Total Iron Binding Capacity 320 mcg/dL (228-428); Total Protein 8.4 g/dL (6.5-8.0); Triglycerides 230 mg/dL (<150); Unsaturated Iron Binding 253 ug/dL
[2025-08-30 17:07] LABS: Folate 11.8 ng/mL (> or = 4.0); Vitamin B12 544 pg/mL (200-900)
== END 2025-08-30 14:02 | disposition home or self-care (01) ==
LOC: HO.LAB 14:01
PROVIDERS: Absent Provider Internal Medicine; PCP Internal Medicine
DX: Z00.00 Encounter for general adult medical examination without abnormal findings (principal); R21 Rash and other nonspecific skin eruption; D64.9 Anemia, unspecified; E55.9 Vitamin D deficiency, unspecified; E53.8 Deficiency of other specified B group vitamins; Z13.6 Encounter for screening for cardiovascular disorders
CPT/HCPCS: 36415; 80053; 80061; 82306; 82607; 82746; 83540; 85025